=== PATIENT | female | born 1930 | race Caucasian/White ===

== ENCOUNTER 2016-12-15 10:02 | Outpatient (CLI) | payer OTHER ==
[2016-12-15 10:54] LABS: eGFR (African) > 60; eGFR (Non-African) > 60
== END 2016-12-15 10:03 ==
LOC: LAB 10:02
PROVIDERS: ATTEND Family Medicine
DX: I10 Essential (primary) hypertension (principal); E05.90 Thyrotoxicosis, unspecified without thyrotoxic crisis or storm
CPT/HCPCS: 36415; 80053; 84439; 84443; 84481

== ENCOUNTER 2016-12-22 09:57 | Outpatient (CLI) | payer OTHER ==
[2016-12-22] MEDS ORDERED: DENOSUMAB 60 MG/ML ML SQ ONE (10:00)
[2016-12-22] MEDS ORDERED: DENOSUMAB 60 MG/ML ML SQ SCH (11:00)
== END 2016-12-22 10:00 ==
LOC: INF 09:57
PROVIDERS: ATTEND Family Medicine
DX: M81.0 Age-related osteoporosis without current pathological fracture (principal)
CPT/HCPCS: 96372; J0897

== ENCOUNTER 2017-09-19 09:56 | Outpatient (CLI) | payer OTHER ==
[2017-09-19 10:45] LABS: eGFR (African) > 60; eGFR (Non-African) > 60
== END 2017-09-19 09:59 ==
LOC: LAB 09:56
PROVIDERS: ATTEND Family Medicine
DX: E03.9 Hypothyroidism, unspecified (principal); I10 Essential (primary) hypertension
CPT/HCPCS: 36415; 80053; 84443